=== PATIENT | female | born 1960 | race Two or more races ===

== ENCOUNTER 2024-07-07 11:53 | Inpatient (IN) | payer MEDICAID, OTHER ==
[~2024-07-07] VITALS: Ht 157.5 cm; Wt 69.8 kg
--- NOTE | 2024-07-07 13:36 | ED.PDOC ---
History of Present Illness HPI Luis Carols 64F who is luxembourgish speaking only, presents to the ER w/ 3 surgeries on her ABD and there is a cyst removal, an exploratory and a hernia removal which all happened 2 years ago. There is redness and liquid coming from one of the surgeries that is in the belly button. Pt states that the redness and liquid has been happening for the past 3 days. PMHx of DM. Pt notes that the procedure was done in [place]. Denies chills, fever, N/V/D, SOB, CP or other associated symptoms, modifiers, or recent injuries at this time. Chief Complaint: Wound Check Time Seen by MD: 13:05 Primary Care Provider: BRADEN Reviewed Notes: Nurses Notes, Medications, Allergies Allergies: Coded Allergies: NO KNOWN ALLERGIES (Unverified , 07/07/24) Information Source: Patient Mode of Arrival: Ambulatory Severity: Moderate Timing: Days Duration: Since onset, Days Prehospital treatment: None Past Medical History PAST MEDICAL HISTORY: DM Surgical History: Hernia Repair Surgical History (Other): cyst removal and exploratory TECHNOLOGY ANALYST History: No Pertinent TECHNOLOGY ANALYST History Family History Family History: Reviewed,noncontributory to illness, Unknown Social History Smoker: Non-Smoker Alcohol: Denies ETOH Use Drugs: Denies Drug Use Lives In: Home Constitutional: denies: chills, diaphoresis, fatigue, fever, malaise, sweats, weakness, others EENTM: denies: blurred vision, double vision, ear bleeding, ear discharge, ear drainage, ear pain, ear ringing, eye pain, eye redness, hearing loss, mouth pain, mouth swelling, nasal discharge, nose bleeding, nose congestion, nose pain, photophobia, tearing, throat pain, throat swelling, voice changes, others Respiratory: denies: cough, hemoptysis, orthopnea, SOB at rest, shortness of breath, SOB with excertion, stridor, wheezing, others Cardiovascular: denies: chest pain, dizzy spells, diaphoresis, Dyspnea on exertion, edema, irregular heart beat, left arm pain, lightheadedness, palpitations, PND, syncope, others Gastrointestinal: denies: abdomen distended, abdominal pain, blood streaked bowels, constipated, diarrhea, dysphagia, difficulty swallowing, hematemesis, melena, nausea, poor appetite, poor fluid intake, rectal bleeding, rectal pain, vomiting, others Genitourinary: denies: abnormal vagina bleeding, burning, dyspareunia, dysuria, flank pain, frequency, hematuria, incontinence, pain, , vagina discharge, urgency, others Neurological: denies: dizziness, fainting, headache, left sided numbness, left sided weakness, numbness, paresthesia, pre-existing deficit, right sided numbness, right sided weakness, seizure, speech problems, tingling, tremors, weakness, others Musculoskeletal: denies: back pain, gout, joint pain, joint swelling, muscle pain, muscle stiffness, neck pain, others Integumetry: reports: change in color; denies: bruises, change in hair/nails, dryness, laceration, lesions, lumps, rash, wounds, others Allergic/Immunocompromised: denies: Difficulty Healing, Frequent Infections, Hives, Itching, others Hematologic/Lymphatic: denies: anemia, blood clots, easy bleeding, easy bruising, swollen glands, others Endocrine: denies: excessive hunger, excessive sweating, excessive thirst, excessive urination, flushing, intolerance to cold, intolerance to heat, unexplained weight gain, unexplained weight loss, others Psychiatric: denies: anxiety, bipolar disorder, depression, hopeless, panic disorder, schizophrenia, sleepless, suicidal, others All Other Systems: Reviewed and Negative Physical Exam General Appearance: Moderate Distress, Normal HEENT: Normal ENT Inspection, Pharynx Normal, TMs Normal Neck: Full Range of Motion, Non-Tender, Normal, Normal Inspection Respiratory: Chest Non-Tender, Lungs Clear, No Accessory Muscle Use, No Respiratory Distress, Normal Breath Sounds Cardiovascular: No Edema, No JVD, No Murmur, No Gallop, Normal Peripheral Pulses, Regular Rate/Rhythm Breast Exam: Deferred Gastrointestinal: No Organomegaly, Non Tender, No Pulsatile Mass, Normal Bowel Sounds, Soft Genitalia: Deferred Pelvic: Deferred Rectal: Deferred Extremities: No calf tenderness, Normal capillary refill, Normal inspection, Normal range of motion, Non-tender, No pedal edema Musculoskeletal : Apperance: Normal Neurologic: Alert, leather leveler II-XII nml as Tested, No Motor Deficits, Normal Affect, Normal Mood, No Sensory Deficits Cerebellar Function: Normal Reflexes: Normal Skin: Dry, Normal Color, Warm, Wounds (Umbilical region redness) Peripheral Pulses: 3+ Radial (R), 3+ Radial (L) Lymphatic: No Adenopathy Was a procedure done? Was a procedure done?: No Differential Dx Considerations may include: Cellulitis Electrolyte imbalance X-Ray, Labs, Meds, VS Vital Signs Date Time Temp Pulse Resp B/P (MAP) Pulse Ox O2 Delivery O2 Flow Rate FiO2 07/07/24 16:33 53 16 113/70 (84) 99 07/07/24 14:42 56 17 97 Room Air 07/07/24 14:42 98.9 56 17 105/64 (78) 97 98.9 07/07/24 12:17 98.0 56 17 105/64 (78) 97 Lab Test 07/07/24 15:51 07/07/24 14:54 07/07/24 12:12 Range/Units Urine Color Colorless Yellow Urine Clarity Clear Clear Urine pH 5.0 5.0-9.0 Urine Specific [place] 1.007 1.001-1.035 Urine Protein Negative Negative Urine Ketones Negative Negative Urine Blood Trace H Negative /uL Urine Nitrite Negative Negative Urine Bilirubin Negative Negative Urine Urobilinogen Normal Negative mg/dL Urine Leukocyte Esterase Negative Negative /uL Urine RBC None seen 0 - 4 /hpf Urine WBC None seen 0 - 5 /hpf Urine Squamous Epithelial Cells Few <5 /hpf Urine Bacteria None seen None Seen /hpf Urine Glucose Normal Normal mg/dL White Blood Count 8.1 4.4-10.8 10^3/uL Red Blood Count 4.34 4.0-5.20 10^6/uL Hemoglobin 12.5 12.2-16.2 g/dL Hematocrit 36.1 36.0-46.0 % Mean Corpuscular Volume 83.3 80.0-100.0 fL Mean Corpuscular Hemoglobin 28.8 28.0-32.0 pg Mean Corpuscular Hemoglobin Concent 34.5 32.0-36.0 g/dL Red Cell Distribution Width 14.0 11.8-14.3 % Platelet Count 295 140-450 10^3/uL Mean Platelet Volume 7.7 6.9-10.8 fL Neutrophils (%) (Auto) 64.6 37.0-80.0 % Lymphocytes (%) (Auto) 26.2 10.0-50.0 % Monocytes (%) (Auto) 5.1 0.0-12.0 % Eosinophils (%) (Auto) 3.3 0.0-7.0 % Basophils (%) (Auto) 0.8 0.0-2.0 % Neutrophils # (Auto) 5.3 1.6-8.6 10 ^3/uL Lymphocytes # (Auto) 2.1 0.4-5.4 10 ^3/uL Monocytes # (Auto) 0.4 0-1.3 10 ^3/uL Eosinophils # (Auto) 0.3 0-0.8 10 ^3/uL Basophils # (Auto) 0.1 0-0.2 10 ^3/uL Nucleated Red Blood Cells 0.0 % Sodium Level 138 136-145 mmol/L Potassium Level 3.8 3.5-5.1 mmol/L Chloride Level 106 98-107 mmol/L Carbon Dioxide Level 25 20-31 mmol/L Anion Gap 7 5-15 Blood Urea Nitrogen 13 9-23 mg/dL Creatinine 0.73 0.550-1.02 mg/dL Glomerular Filtration Rate Calc 92 >90 mL/min BUN/Creatinine Ratio 17.8 10.0-20.0 Serum Glucose 105 74-106 mg/dL Calcium Level 10.4 8.7-10.4 mg/dL POC Glucose 93 70-106 mg/dl Patient alert. Does have redness around the umbilicus. Vitals stable. Answering all questions. On examination there is redness around the umbilical region. Had surgery in the past in [place]. Denies fever. WBC within normal limits. Hemoglobin within normal limits. Explained to the patient that she will need intravenous antibiotics. Continue cardiac monitoring. Time of 1ST Reevaluation: 13:35 Reevaluation 1ST: Unchanged Patient Education/Counseling: Diagnosis, Treatment, Prognosis Family Education/Counseling: No Family Present Departure 1 Departure Time of Disposition: 15:42 Impression: Primary Impression: Cellulitis Qualified Codes: L03.90 - Cellulitis, unspecified Disposition: ADMITTED INPATIENT Admit to: Med Surg Condition: Guarded Critical Care Note Critical Care Time?: No Stability Stability form required: No Heart Score Heart Score: Heart Score Response (Comments) Value History N/A 0 EKG N/A 0 Age N/A 0 Risk Factors N/A 0 Troponin N/A 0 Total 0 I personally scribed for DEAN NUNEZ MD ([email or web address]) on 07/07/24 at 13:36. Electronically submitted by Dwain Dobbins ([email or web address]). DEAN NUNEZ MD Jul 07, 2024 13:36
[2024-07-07 15:11] LABS: Basophils # (auto) 0.1 10 ^3/uL (0-0.2); Basophils % (auto) 0.8 % (0.0-2.0); Eosinophils # (auto) 0.3 10 ^3/uL (0-0.8); Eosinophils % (auto) 3.3 % (0.0-7.0); Hematocrit 36.1 % (36.0-46.0); Hemoglobin 12.5 g/dL (12.2-16.2); Lymphocytes # (auto) 2.1 10 ^3/uL (0.4-5.4); Lymphocytes % (auto) 26.2 % (10.0-50.0); Mean Corpuscular Hemoglobin 28.8 pg (28.0-32.0); Mean Corpuscular Hgb Conc. 34.5 g/dL (32.0-36.0); Mean Corpuscular Volume 83.3 fL (80.0-100.0); Monocytes # (auto) 0.4 10 ^3/uL (0-1.3); Monocytes % (auto) 5.1 % (0.0-12.0); Neutrophils # (auto) 5.3 10 ^3/uL (1.6-8.6); Neutrophils % (auto) 64.6 % (37.0-80.0); Platelet Count (auto) 295 10^3/uL (140-450); Red Blood Cells 4.34 10^6/uL (4.0-5.20); White Blood Cell 8.1 10^3/uL (4.4-10.8)
[2024-07-07 15:27] LABS: Chloride 106 mmol/L (98-107); Potassium 3.8 mmol/L (3.5-5.1); Sodium 138 mmol/L (136-145)
[2024-07-07 15:28] LABS: Anion Gap 7 (5-15); Calcium 10.4 mg/dL (8.7-10.4); Carbon Dioxide 25 mmol/L (20-31)
[2024-07-07 15:33] LABS: BUN/Creatinine Ratio 17.8 (10.0-20.0); Blood Urea Nitrogen 13 mg/dL (9-23); Glucose 105 mg/dL (74-106)
[2024-07-07 16:08] LABS: Urine Bacteria None Seen /hpf (None Seen); Urine WBC None Seen /hpf (0 - 5)
[2024-07-07 16:30] LABS: Urine Blood TRACE /uL (Negative); Urine Clarity Clear (Clear); Urine Color Colorless (Yellow); Urine Protein, UAD Negative (Negative); Urine Specific Gravity 1.007 (1.001-1.035); Urine Urobilinogen Normal (Negative)
[2024-07-07] MEDS: CLINDAMYCIN 300MG IV 50 ML IV ONE (17:46)
[2024-07-07] MEDS: cefTRIAXone 1GM/50ML D5W 50 ML IV ONE (17:46)
--- NOTE | 2024-07-07 19:22 | DVH ---
CT SCAN ABDOMEN AND PELVIS WITHOUT CONTRAST CLINICAL HISTORY: cellulitis TECHNIQUE: Helical axial images are obtained from the lung bases through the pelvis without oral cont rast. No intravenous contrast was administered. Coronal and sagittal reformatted images were generate d from thin section reconstructions. One or more of the following radiation dose reduction techniques were used for this examination: automated exposure control, adjustment of the mA and/or kV according to patient size, use of iterative reconstruction technique. COMPARISON: None FINDINGS: LOWER THORAX: Imaged lung bases are grossly clear. ABDOMEN AND PELVIS: Evaluation of visceral and vascular structures is limited due to lack of contrast administration. As visualized, the unenhanced liver, spleen, pancreas and adrenals appear grossly unremarkable. No si zable, radiopaque cholelithiasis. No hydroureteronephrosis. No evidence of abdominal aortic aneurysm. No evidence of bowel obstruction. No free intraperitoneal air or fluid identified. No sizable bladder calculus. Fluid noted tracking along a midline lower anterior abdominal wall scar/incision which is approximate ly 7-8 cm in length. Largest part of this collection measures approximately 2.2 x 2.3 cm in AP dimens ions. Overlying skin thickening is noted. No destructive osseous lesions identified. Degenerative changes at L5-S1. IMPRESSION: Suspected incisional abscess as above.
[2024-07-07 21:19] VITALS: PULSE 61; RESP 16; O2SAT 99
[2024-07-07] MEDS ORDERED: NITROGLYCERIN 0.4 MG SL TAB SL PRN (21:45)
[2024-07-07] MEDS ORDERED: MORPHINE SULFATE INJ 2 MG/ml SYRG IV PRN (21:45)
[2024-07-07] MEDS ORDERED: ONDANSETRON HCL 4 MG/2 ML VIAL IV PRN (21:45)
[2024-07-07] MEDS: SODIUM CHLOR 0.9% PF (SALINE LOCK) 10ML VIAL/SYR IV SCH (22:04)
[2024-07-07 23:02] LABS: Albumin 4.9 g/dL (3.2-4.8); Bilirubin, Total 0.4 mg/dL (0.2-1.0); Total Protein 8.3 g/dL (5.7-8.2)
--- NOTE | 2024-07-07 23:07 | DVHHPRES ---
History of Present Illness Resident Creating Document: ZAMZAM DIXON RESIDENT History of Present Illness Oanh Tirado is a 64 years old Haitian-speaking female with PMH of type 2 DM and HLD presented to the ED for the wound check. Patient reported she has been having wound in lower abdomen in midline for 2 years, the wound was formed after I and D in [place] 2 years back for an abscess, since then it has been always leaking symptoms weight sometimes serous sometimes mixed with blood but no pain but for past 3 days she has been experiencing pain but denies fever, nausea, vomiting, and other associated symptoms. Past Medical History Type 2 DM, HLD Past Surgical History Appendectomy, hernia repair Family History Reviewed, noncontributory Past Social History Lives with daughter. Denies smoking, alcohol and other drug abuse Review of Systems Constitutional: No: Fever, Chills, Sweats, Weakness, Malaise, Other Eyes: No: Pain, Vision change, Conjunctivae inflammation, Eyelid inflammation, Other, Redness Cardiovascular: No: Chest Pain, Palpitations, Orthopnea, Paroxysmal Noc. Dyspnea, Edema, Lt Headedness, Other Gastrointestinal: No: Nausea, Vomiting, Abdominal Pain, Diarrhea, Constipation, Melena, Hematochezia, Other Genitourinary: No Dysuria, No Frequency, No Incontinence, No Hematuria, No Retention, No Other Musculoskeletal: No: other, neck pain, shoulder pain, arm pain, back pain, hand pain, leg pain, foot pain Skin: Other (Midline lower abdominal wound) Allergies: Coded Allergies: NO KNOWN ALLERGIES (Unverified , 07/07/24) Medications Current Medications Medications Dose Ordered Sig/[facility] Route Start Time Stop Time Status Last Admin Dose Admin Sodium Chloride 10 ml Q8HR IV 07/07/24 22:00 07/07/24 22:04 10 ML Ondansetron HCl 4 mg Q4HP PRN IV 07/07/24 21:45 Acetaminophen 650 mg Q6HP PRN PO 07/07/24 21:45 Morphine Sulfate 2 mg Q4HPRN PRN IV 07/07/24 21:45 Nitroglycerin 0.4 mg Q5MINP PRN SL 07/07/24 21:45 Morphine Sulfate 2 mg Q30M PRN IV 07/07/24 21:45 Clindamycin Phosphate 50 ml @ 50 mls/hr DAILY IV 07/08/24 10:00 Ceftriaxone Sodium 50 ml @ 100 mls/hr DAILY IV 07/08/24 10:00 Pantoprazole Sodium 40 mg DAILY IV 07/08/24 10:00 Exam Vital Signs Vital Signs Date Time Temp Pulse Resp B/P (MAP) Pulse Ox O2 Delivery O2 Flow Rate FiO2 07/07/24 21:19 61 16 99 Room Air* 0 21 07/07/24 20:13 98.0 106/68 (81) 98.0 Exam Pt is lying on bed General Appearance: Alert, Oriented X3, Cooperative, Not in acute distress HEENT: Atraumatic, Mucous membranes moist/pink Respiratory: Clear to auscultation, Normal air movement, No added sounds Cardiovascular: Regular rate, Normal S1, Normal S2, No murmurs Abdominal: Active bowel sounds, Soft, no distention, no tenderness Extremities: No edema, Normal pulses, No tenderness/swelling Skin: Midline lower abdominal wound with induration, redness, tender, draining serous fluid Neuro: Normal speech, sensorimotor deficits none Psych/Mental Status: Mental status NL, Mood NL Nurse was there as sharperone during examination Labs/Xrays Labs Test 07/07/24 15:51 07/07/24 14:54 07/07/24 12:12 Range/Units Urine Color Colorless Yellow Urine Clarity Clear Clear Urine pH 5.0 5.0-9.0 Urine Specific [place] 1.007 1.001-1.035 Urine Protein Negative Negative Urine Ketones Negative Negative Urine Blood Trace H Negative /uL Urine Nitrite Negative Negative Urine Bilirubin Negative Negative Urine Urobilinogen Normal Negative mg/dL Urine Leukocyte Esterase Negative Negative /uL Urine RBC None seen 0 - 4 /hpf Urine WBC None seen 0 - 5 /hpf Urine Squamous Epithelial Cells Few <5 /hpf Urine Bacteria None seen None Seen /hpf Urine Glucose Normal Normal mg/dL White Blood Count 8.1 4.4-10.8 10^3/uL Red Blood Count 4.34 4.0-5.20 10^6/uL Hemoglobin 12.5 12.2-16.2 g/dL Hematocrit 36.1 36.0-46.0 % Mean Corpuscular Volume 83.3 80.0-100.0 fL Mean Corpuscular Hemoglobin 28.8 28.0-32.0 pg Mean Corpuscular Hemoglobin Concent 34.5 32.0-36.0 g/dL Red Cell Distribution Width 14.0 11.8-14.3 % Platelet Count 295 140-450 10^3/uL Mean Platelet Volume 7.7 6.9-10.8 fL Neutrophils (%) (Auto) 64.6 37.0-80.0 % Lymphocytes (%) (Auto) 26.2 10.0-50.0 % Monocytes (%) (Auto) 5.1 0.0-12.0 % Eosinophils (%) (Auto) 3.3 0.0-7.0 % Basophils (%) (Auto) 0.8 0.0-2.0 % Neutrophils # (Auto) 5.3 1.6-8.6 10 ^3/uL Lymphocytes # (Auto) 2.1 0.4-5.4 10 ^3/uL Monocytes # (Auto) 0.4 0-1.3 10 ^3/uL Eosinophils # (Auto) 0.3 0-0.8 10 ^3/uL Basophils # (Auto) 0.1 0-0.2 10 ^3/uL Nucleated Red Blood Cells 0.0 % Sodium Level 138 136-145 mmol/L Potassium Level 3.8 3.5-5.1 mmol/L Chloride Level 106 98-107 mmol/L Carbon Dioxide Level 25 20-31 mmol/L Anion Gap 7 5-15 Blood Urea Nitrogen 13 9-23 mg/dL Creatinine 0.73 0.550-1.02 mg/dL Glomerular Filtration Rate Calc 92 >90 mL/min BUN/Creatinine Ratio 17.8 10.0-20.0 Serum Glucose 105 74-106 mg/dL Calcium Level 10.4 8.7-10.4 mg/dL POC Glucose 93 70-106 mg/dl Assessment/Plan Assessment/Plan # abdominal wall cellulitis vs abscess -currently on clindamycin and Rocephin -ordered wound consult -ordered wound culture -consider surgical evaluation if needed -monitor lab -CT abdominal pelvis showed suspected incisional abscess -abdominal ultrasound showed likely phlegmonous abscess No VTE PPX since patient is ambulatory No GI be PPX Regular diet Resume home meds Goals of care discussed with the patient and family for more than 27 minutes: Full code status Case management discussed with Dr. Bridges, nurse and patient Plan discussed with: Patient My Orders Orders - ZAMZAM DIXON RESIDENT Procedure Category Date Status Time Admit ADMIT 07/07/24 Transmitted 21:43 Allergies ALBINO 07/07/24 In Process 21:43 Code Status CODE 07/07/24 Transmitted 21:43 Sodium Chloride Lock PHA 07/07/24 In Process (Saline Lock Ns) 22:00 Ondansetron Hcl PHA 07/07/24 In Process (Zofran) 21:45 Complete Blood Count LAB 07/08/24 Verified 04:00 Comprehensive LAB 07/08/24 Verified Metabolic Panel 04:00 Cardiac DIET 07/08/24 Transmitted Diet-2gna,Lofat,Lochol Breakfast Acetaminophen Tablet PHA 07/07/24 In Process (Tylenol Tablet) 21:45 Morphine Sulfate PHA 07/07/24 In Process Injection 21:45 Nitroglycerin PHA 07/07/24 In Process Sublingual (Ntrostat 21:45 Morphine Sulfate PHA 07/07/24 In Process Injection 21:45 Oxygen By Nasal RT 07/07/24 Transmitted Cannula 21:43 Stat Ekg For Chest ALBINO 07/07/24 In Process Pain 21:43 Notify Of Changes ALBINO 07/07/24 In Process From Base 21:43 Housekeeping Supervisor For ALBINO 07/07/24 In Process 24 Hours 21:43 Emergency Dysrhythmia ALBINO 07/07/24 In Process Protocol 21:43 Rhythm Strips Once ALBINO 07/07/24 In Process Every Shift 21:43 * Wound Consult CONS 07/07/24 Transmitted Clindamycin 300mg Iv PHA 07/08/24 In Process (Cleocin Iv) 10:00 Ceftriaxone 1gm/50ml PHA 07/08/24 In Process D5w (Rocephin) 10:00 Pantoprazole PHA 07/08/24 In Process (Protonix) 10:00 Wound Culture W/ Gs DONNA 07/07/24 Logged 23:01 Hemoglobin A1c LAB 07/07/24 Transmitted 23:02 Drug Screen LAB 07/07/24 Transmitted 23:02 Vitamin D, 25-Hydroxy LAB 07/07/24 Transmitted 23:02 Vitamin B12 LAB 07/07/24 Transmitted 23:02 Urinalysis LAB 07/07/24 Transmitted 23:02 Thyroid Stimulating LAB 07/07/24 Transmitted Hormone 23:02 ZACKSASKIAJONATHAN RESIDENT Jul 07, 2024 23:07
[2024-07-07 23:30] LABS: Amphetamine Screen, Urine Neg (NEGATIVE); Barbiturate Scree,Urine Neg (NEGATIVE); Benzodiazephine Screen, Urine Neg (NEGATIVE)
[2024-07-07 23:31] LABS: Cannabinoid Screen, Urine Neg (NEGATIVE); Cocaine Screen, Urine Neg (NEGATIVE); Opiate Scree,Urine Neg (NEGATIVE); Phencyclidine Screen, Urine Neg (NEGATIVE)
[2024-07-08] VITALS (12 sets, daily range): BP systolic 94–117; BP diastolic 47–90; PULSE 48–78; RESP 16–20; TEMP 97.3–98.1; O2SAT 95–100
--- NOTE | 2024-07-08 04:02 | DVH ---
Exam: US ABDOMEN LIMITED Date: 07/08/2024 12:55 AM Clinical History: Abscess Comparison: None Technique: Targeted sonographic evaluation of the soft tissues of the abdominal wall was obtained utilizing gra yscale and color Doppler imaging. Findings: There is a 3 x 1 x 2 cm phlegmonous collection in the mid abdominal wall. Developing abscess not excl uded. IMPRESSION: There is a 3 x 1 x 2 cm phlegmonous collection in the mid abdominal wall. Developing abscess not excl uded.
[2024-07-08 04:47] LABS: Basophils # (auto) 0 10 ^3/uL (0-0.2); Basophils % (auto) 0.6 % (0.0-2.0); Eosinophils # (auto) 0.3 10 ^3/uL (0-0.8); Eosinophils % (auto) 3.8 % (0.0-7.0); Hematocrit 33.1 % (36.0-46.0); Hemoglobin 11.1 g/dL (12.2-16.2); Lymphocytes # (auto) 2.5 10 ^3/uL (0.4-5.4); Lymphocytes % (auto) 32.5 % (10.0-50.0); Mean Corpuscular Hgb Conc. 33.5 g/dL (32.0-36.0); Mean Corpuscular Volume 83.4 fL (80.0-100.0); Monocytes # (auto) 0.5 10 ^3/uL (0-1.3); Monocytes % (auto) 6.6 % (0.0-12.0); Neutrophils # (auto) 4.3 10 ^3/uL (1.6-8.6); Neutrophils % (auto) 56.5 % (37.0-80.0); Platelet Count (auto) 262 10^3/uL (140-450); Red Blood Cells 3.96 10^6/uL (4.0-5.20); Red Cell Distribution Width 13.9 % (11.8-14.3); White Blood Cell 7.6 10^3/uL (4.4-10.8)
[2024-07-08 05:05] LABS: Alanine Aminotransferase 12 U/L (7-40); Albumin 4.5 g/dL (3.2-4.8); Alkaline Phosphatase 49 U/L (46-116); Anion Gap 5 (5-15); Aspartate Aminotransferase < 8 U/L (13-40); BUN/Creatinine Ratio 18.1 (10.0-20.0); Bilirubin, Total 0.4 mg/dL (0.2-1.0); Blood Urea Nitrogen 15 mg/dL (9-23); Calcium 9.6 mg/dL (8.7-10.4); Carbon Dioxide 27 mmol/L (20-31); Chloride 108 mmol/L (98-107); Glucose 99 mg/dL (74-106); Potassium 3.9 mmol/L (3.5-5.1); Sodium 140 mmol/L (136-145); Total Protein 7.1 g/dL (5.7-8.2)
[2024-07-08] MEDS: CLINDAMYCIN 300MG IV 50 ML IV SCH ×2 (09:15→14:49)
[2024-07-08] MEDS: PANTOPRAZOLE 40 MG/10 ML VIAL INJ IV SCH (09:15)
--- NOTE | 2024-07-08 09:48 | DVH ---
ULTRASOUND ABDOMEN LIMITED INDICATION: Abdominal pain.. TECHNIQUE: Multiple real-time sonographic images of the abdomen were obtained. COMPARISON: US ABDOMEN LIMITED on DOS: 07/08/24 FINDINGS: The visualized liver parenchyma appears echogenic consistent with steatosis. . The liver measures 13.3 cm. No discrete hepatic lesion or intrahepatic biliary ductal dilatation is identified. There are small mobile gallstones and sludge seen within the gallbladder. There is no gallbladder wal l thickening or pericholecystic fluid. The common biliary duct is not dilated. The right kidney measures 11.2 cm length. No sonographic evidence of nephrolithiasis or hydronephro sis. Pancreas is obscured by bowel gas. IMPRESSION: 1. Hepatic steatosis. 2. Small mobile gallstones and sludge in the gallbladder. HS:Y
[2024-07-08] MEDS ORDERED: cefTRIAXone 1GM/50ML D5W 50 ML IV SCH (10:00)
[2024-07-08] MEDS: MORPHINE SULFATE INJ 2 MG/ml SYRG IV PRN (15:02)
[2024-07-08] MEDS ORDERED: BACDST PO (15:46)
[2024-07-08] MEDS: SODIUM CHLORIDE 0.9% 500 ML IV ONE (17:31)
--- NOTE | 2024-07-08 20:11 | DVHPNRES ---
Progress Note Date Seen: Jul 08, 2024 Resident Creating Document: CONSTANZA DEGROOT MIRIAM Has the PT tested + for MRSA If YES, has PT been informed?: No Medical Necessity Reason Pt with a Central, PICC or Fol: No Subjective Review of Systems Oanh Tirado is a 64-year-old Telugu-speaking female with a PMH of type 2 DM and HLD who presented to the ED for a wound check. The patient reported having a wound in the lower abdomen midline for 2 years, formed after an I&D in [place] for an abscess. Since then, it has been leaking serous or serosanguineous fluid but was painless until 3 days ago when she started experiencing pain. She denies fever, nausea, vomiting, and other associated symptoms. Past Medical History: Type 2 DM, HLD Past Surgical History: Appendectomy, hernia repair Family History: Reviewed, noncontributory Social History: Lives with daughter, denies smoking, alcohol, and other drug abuse Home Medication: Metformin, atorvastatin On physical examination, there was periumbilical redness with a small ulcer draining serosanguineous fluid; otherwise, the physical examination was within normal limits. Lab studies showed Hb at 11.1, chloride 108, Hb A1c 6.1, otherwise within normal limits. Abdominal CT scan showed a suspected incisional abscess, and ultrasound revealed a 3 x 1 x 2 cm phlegmonous collection in the mid-abdominal wall, with a developing abscess not excluded, hepatic steatosis, and small mobile gallstones and sludge in the gallbladder. The patient was admitted for evaluation of a possible abdominal abscess. Patient reports: No new complaints, Feels better Changes from previous H/P or p: No Changes Objective vital signs Vital Sign Date Time Temp Pulse Resp B/P (MAP) Pulse Ox O2 Delivery O2 Flow Rate FiO2 07/08/24 18:48 75 18 98 Room Air* 0 21 07/08/24 18:47 97.3 117/69 (85) 97.3 Total Intake and Output 07/07/24 07/07/24 07/08/24 15:00 23:00 07:00 Intake Total 100 ml Balance 100 ml medications Current Medications Medications Dose Ordered Sig/[facility] Route Start Time Stop Time Status Last Admin Dose Admin Sodium Chloride 10 ml Q8HR IV 07/07/24 22:00 07/08/24 14:00 10 ML Ondansetron HCl 4 mg Q4HP PRN IV 07/07/24 21:45 Acetaminophen 650 mg Q6HP PRN PO 07/07/24 21:45 Morphine Sulfate 2 mg Q4HPRN PRN IV 07/07/24 21:45 07/08/24 15:02 2 MG Nitroglycerin 0.4 mg Q5MINP PRN SL 07/07/24 21:45 Morphine Sulfate 2 mg Q30M PRN IV 07/07/24 21:45 Pantoprazole Sodium 40 mg DAILY IV 07/08/24 10:00 07/08/24 09:15 40 MG Clindamycin Phosphate 50 ml @ 50 mls/hr Q8HR IV 07/08/24 14:00 07/08/24 14:49 50 MLS/HR Examination General Appearance: Alert, Oriented X3, Cooperative, No acute distress HEENT: Atraumatic, PERRLA, EOMI, Mucous membrane moist/pink Respiratory: Clear to auscultation, Normal air movement Cardiovascular: Regular rate, Normal S1, Normal S2, No murmurs, no chest wall tenderness Abdominal: periumbilical redness with a small ulcer draining serosanguineous fluid Extremities: No clubbing, No cyanosis, No edema, Normal pulses, No tenderness/swelling Skin: No rashes, No breakdown, No significant lesion laboratory and microbiology Laboratory Tests 07/08/24 04:17 Test 07/08/24 04:17 Range/Units Serum Glucose 99 74-106 mg/dL Labs and/or images reviewed: Labs reviewed by me, Image(s) reviewed by me Problem List/Assessment/Plan Problem List/Assessment/Plan ?Abdominal wall abscess Abdominal CT scan showed fluid noted tracking along a midline lower anterior abdominal wall scar/incision which is approximately 7-8 cm in length. Largest part of this collection measures approximately 2.2 x 2.3 cm in AP dimensions ultrasound revealed a 3 x 1 x 2 cm phlegmonous collection in the mid-abdominal wall IV clindamycin Surgery is on the board Hepatic steatosis, likely due to JORGE Monitoring Gallstone Ultrasound shows small mobile gallstones and sludge in the gallbladder Follow up on outpatient basis Diabetes mellitus Hb A1c is at 6.1 Serum glucose is at 105 Monitoring glucose level Hyperlipidemia Continue atorvastatin DVT prophylaxis Lovenox Bradycardia EKG shows sinus bradycardia Monitoring Peptic ulcer prevention Protonix Code status Full Code Case discussed with Dr. Bridges Plan discussed with: Patient, Other (RN) My Orders My Orders Orders - CONSTANZA DEGROOT RESDIBRIGETTE Procedure Category Date Status Time Clindamycin 300mg Iv PHA 07/08/24 In Process (Cleocin Iv) 14:00 LIVER US 07/08/24 Resulted 09:10 * Surgical Consult CONS 07/08/24 Transmitted Wound Culture W/ Gs DONNA 07/08/24 In Process 16:21 * Dietary Consult CONS 07/08/24 Transmitted 18:34 CONSTANZA DEGROOT RESDIBRIGETTE Jul 08, 2024 20:11
[2024-07-09] VITALS (8 sets, daily range): BP systolic 95–146; BP diastolic 47–66; PULSE 51–79; RESP 17–20; TEMP 97–98.2; O2SAT 95–100
[2024-07-09 04:43] LABS: Basophils # (auto) 0.1 10 ^3/uL (0-0.2); Basophils % (auto) 0.7 % (0.0-2.0); Eosinophils # (auto) 0.3 10 ^3/uL (0-0.8); Eosinophils % (auto) 3.5 % (0.0-7.0); Hematocrit 32.4 % (36.0-46.0); Lymphocytes # (auto) 2.6 10 ^3/uL (0.4-5.4); Lymphocytes % (auto) 34.2 % (10.0-50.0); Mean Corpuscular Hemoglobin 28.1 pg (28.0-32.0); Mean Corpuscular Hgb Conc. 33.9 g/dL (32.0-36.0); Mean Corpuscular Volume 82.7 fL (80.0-100.0); Monocytes # (auto) 0.5 10 ^3/uL (0-1.3); Monocytes % (auto) 6.7 % (0.0-12.0); Neutrophils # (auto) 4.2 10 ^3/uL (1.6-8.6); Neutrophils % (auto) 54.9 % (37.0-80.0); Platelet Count (auto) 262 10^3/uL (140-450); Red Blood Cells 3.92 10^6/uL (4.0-5.20); Red Cell Distribution Width 13.8 % (11.8-14.3); White Blood Cell 7.7 10^3/uL (4.4-10.8)
[2024-07-09] MEDS: ACETAMINOPHEN 325 MG TAB PO PRN (05:35)
[2024-07-09] MEDS: SODIUM CHLORIDE 0.9% 500 ML IV ONE (08:45)
--- NOTE | 2024-07-09 16:41 | DVHPNRES ---
Progress Note Date Seen: Jul 09, 2024 Resident Creating Document: CONSTANZA DEGROOT MIRIAM Has the PT tested + for MRSA If YES, has PT been informed?: No Medical Necessity Reason Pt with a Central, PICC or Fol: No Subjective Review of Systems Patient seen and examined at the bedside. Patient is feeling better but still complained of mild abdominal pain. Patient reports: No new complaints Changes from previous H/P or p: No Changes Objective vital signs Vital Sign Date Time Temp Pulse Resp B/P (MAP) Pulse Ox O2 Delivery O2 Flow Rate FiO2 07/09/24 12:47 97.5 52 17 95/47 (63) 97 97.5 07/09/24 08:03 Room Air* 0 21 Total Intake and Output 07/08/24 07/08/24 07/09/24 15:00 23:00 07:00 Intake Total 700 ml 240 ml Balance 700 ml 240 ml medications Current Medications Medications Dose Ordered Sig/Nyasia Route Start Time Stop Time Status Last Admin Dose Admin Sodium Chloride 10 ml Q8HR IV 07/07/24 22:00 07/09/24 05:29 10 ML Ondansetron HCl 4 mg Q4HP PRN IV 07/07/24 21:45 Acetaminophen 650 mg Q6HP PRN PO 07/07/24 21:45 07/09/24 10:57 650 MG Morphine Sulfate 2 mg Q4HPRN PRN IV 07/07/24 21:45 07/08/24 15:02 2 MG Nitroglycerin 0.4 mg Q5MINP PRN SL 07/07/24 21:45 Morphine Sulfate 2 mg Q30M PRN IV 07/07/24 21:45 Pantoprazole Sodium 40 mg DAILY IV 07/08/24 10:00 07/09/24 10:56 40 MG Clindamycin Phosphate 50 ml @ 50 mls/hr Q8HR IV 07/08/24 14:00 07/09/24 13:10 50 MLS/HR Examination General Appearance: Alert, Oriented X3, Cooperative, No acute distress HEENT: Atraumatic, PERRLA, EOMI, Mucous membrane moist/pink Respiratory: Clear to auscultation, Normal air movement Cardiovascular: Regular rate, Normal S1, Normal S2, No murmurs, no chest wall tenderness Abdominal: periumbilical redness with a small ulcer draining serosanguineous fluid Extremities: No clubbing, No cyanosis, No edema, Normal pulses, No tenderness/swelling Skin: No rashes, No breakdown, No significant lesion laboratory and microbiology Laboratory Tests 07/09/24 04:27 07/08/24 04:17 Test 07/08/24 04:17 Range/Units Serum Glucose 99 74-106 mg/dL Microbiology Date/Time Source Procedure Growth Status 07/08/24 18:31 Abdomen Gram Stain - Final Resulted 07/08/24 18:31 Abdomen Wound Culture - Preliminary Resulted Labs and/or images reviewed: Labs reviewed by me, Image(s) reviewed by me Problem List/Assessment/Plan Problem List/Assessment/Plan ?Abdominal wall abscess Abdominal CT scan showed fluid noted tracking along a midline lower anterior abdominal wall scar/incision which is approximately 7-8 cm in length. Largest part of this collection measures approximately 2.2 x 2.3 cm in AP dimensions ultrasound revealed a 3 x 1 x 2 cm phlegmonous collection in the mid-abdominal wall IV clindamycin Surgery is on the board, planning for the surgery for tomorrow Wound culture preliminary result shows few growth of Staphylococcus aureus Hepatic steatosis, likely due to JORGE Monitoring Gallstone Ultrasound shows small mobile gallstones and sludge in the gallbladder Follow up on outpatient basis Diabetes mellitus Hb A1c is at 6.1 Serum glucose is at 105 Monitoring glucose level Hyperlipidemia Continue atorvastatin DVT prophylaxis Lovenox Bradycardia EKG shows sinus bradycardia Monitoring Peptic ulcer prevention Protonix Code status Full Code Case discussed with Dr. Bridges Plan discussed with: Patient, Other (RN) My Orders My Orders Orders - CONSTANZA DEGROOT Procedure Category Date Status Time * Dietary Consult CONS 07/08/24 Transmitted 18:34 * Surgical Consult CONS 07/09/24 Transmitted 04:54 Date of Service: Jul 09, 2024 Billing Provider: AUDRA WATTS MD Common Visit Codes: [id number] INP/OBS CARE(HIGH) CONSTANZA DEGROOT RESDIENT Jul 09, 2024 16:41 AUDRA WATTS MD Jul 10, 2024 09:55
[2024-07-10] VITALS (9 sets, daily range): BP systolic 98–114; BP diastolic 51–72; PULSE 43–67; RESP 16–20; TEMP 97.5–98.9; O2SAT 95–99
[2024-07-10 07:38] LABS: Basophils # (auto) 0 10 ^3/uL (0-0.2); Basophils % (auto) 0.4 % (0.0-2.0); Eosinophils # (auto) 0.3 10 ^3/uL (0-0.8); Eosinophils % (auto) 3.7 % (0.0-7.0); Hematocrit 34.6 % (36.0-46.0); Hemoglobin 11.6 g/dL (12.2-16.2); Lymphocytes # (auto) 2.5 10 ^3/uL (0.4-5.4); Mean Corpuscular Hgb Conc. 33.6 g/dL (32.0-36.0); Mean Corpuscular Volume 83.4 fL (80.0-100.0); Monocytes # (auto) 0.5 10 ^3/uL (0-1.3); Monocytes % (auto) 6.5 % (0.0-12.0); Neutrophils # (auto) 4.3 10 ^3/uL (1.6-8.6); Neutrophils % (auto) 56.4 % (37.0-80.0); Nucleated Red Blood Cells % 0.1 %; Platelet Count (auto) 260 10^3/uL (140-450); Red Blood Cells 4.15 10^6/uL (4.0-5.20); Red Cell Distribution Width 13.7 % (11.8-14.3); White Blood Cell 7.6 10^3/uL (4.4-10.8)
[2024-07-10 08:01] LABS: INR 1.03 (0.9-1.15); Partial Thromboplastin Time 25.6 SEC (24.5-34.5); Prothrombin Time 10.9 sec (9.3-11.8)
--- NOTE | 2024-07-10 09:44 | DVH ---
EXAM: XY CHEST TWO VIEWS ROUTINE CLINICAL HISTORY: pain COMPARISON: None TECHNIQUE: Frontal and lateral view of the chest was obtained FINDINGS: Lines and Tubes: None Lungs: No focal consolidation. Pleura: No effusion. No pneumothorax. Cardiomediastinal contours: Unremarkable Bones: No acute osseous abnormality. IMPRESSION: No acute cardiopulmonary disease.
--- NOTE | 2024-07-10 18:57 | DVHPNRES ---
Progress Note Date Seen: Jul 10, 2024 Resident Creating Document: CONSTANZA DEGROOT RESDIENT Has the PT tested + for MRSA If YES, has PT been informed?: No Medical Necessity Reason Pt with a Central, PICC or Fol: No Subjective Review of Systems Patient seen and examined at the bedside. Patient is feeling better but still complained of mild abdominal pain. Patient reports: No new complaints Objective vital signs Vital Sign Date Time Temp Pulse Resp B/P (MAP) Pulse Ox O2 Delivery O2 Flow Rate FiO2 07/10/24 17:12 98.9 64 20 98/69 (79) 95 98.9 07/10/24 08:00 Room Air* 0 21 Total Intake and Output 07/09/24 07/09/24 07/10/24 15:00 23:00 07:00 Intake Total 200 ml 672 ml 940 ml Output Total 750 ml Balance 200 ml 672 ml 190 ml medications Current Medications Medications Dose Ordered Sig/Nyasia Route Start Time Stop Time Status Last Admin Dose Admin Sodium Chloride 10 ml Q8HR IV 07/07/24 22:00 07/10/24 15:43 10 ML Ondansetron HCl 4 mg Q4HP PRN IV 07/07/24 21:45 Acetaminophen 650 mg Q6HP PRN PO 07/07/24 21:45 07/09/24 10:57 650 MG Morphine Sulfate 2 mg Q4HPRN PRN IV 07/07/24 21:45 07/08/24 15:02 2 MG Nitroglycerin 0.4 mg Q5MINP PRN SL 07/07/24 21:45 Morphine Sulfate 2 mg Q30M PRN IV 07/07/24 21:45 Pantoprazole Sodium 40 mg DAILY IV 07/08/24 10:00 07/10/24 08:37 40 MG Clindamycin Phosphate 50 ml @ 50 mls/hr Q8HR IV 07/08/24 14:00 07/10/24 15:42 50 MLS/HR Examination General Appearance: Alert, Oriented X3, Cooperative, No acute distress HEENT: Atraumatic, PERRLA, EOMI, Mucous membrane moist/pink Respiratory: Clear to auscultation, Normal air movement Cardiovascular: Regular rate, Normal S1, Normal S2, No murmurs, no chest wall tenderness Abdominal: periumbilical redness with a small ulcer draining serosanguineous fluid Extremities: No clubbing, No cyanosis, No edema, Normal pulses, No tenderness/swelling Skin: No rashes, No breakdown, No significant lesion laboratory and microbiology Laboratory Tests 07/10/24 06:06 07/08/24 04:17 Test 07/08/24 04:17 Range/Units Serum Glucose 99 74-106 mg/dL Microbiology Date/Time Source Procedure Growth Status 07/08/24 18:31 Abdomen Gram Stain - Final Complete 07/08/24 18:31 Wound Culture - Final Methicillin Resistant S.aureus Complete Labs and/or images reviewed: Labs reviewed by me, Image(s) reviewed by me Problem List/Assessment/Plan Problem List/Assessment/Plan ?Abdominal wall abscess Abdominal CT scan showed fluid noted tracking along a midline lower anterior abdominal wall scar/incision which is approximately 7-8 cm in length. Largest part of this collection measures approximately 2.2 x 2.3 cm in AP dimensions ultrasound revealed a 3 x 1 x 2 cm phlegmonous collection in the mid-abdominal wall IV clindamycin Surgery is on the board, planning for the surgery for morning Wound culture shows MRSA positive, sensitive to clindamycin Hepatic steatosis, likely due to JORGE Monitoring Gallstone Ultrasound shows small mobile gallstones and sludge in the gallbladder Follow up on outpatient basis Diabetes mellitus Hb A1c is at 6.1 Serum glucose is at 105 Monitoring glucose level Hyperlipidemia Continue atorvastatin DVT prophylaxis Lovenox Bradycardia EKG shows sinus bradycardia Echocardiogram Telemetry monitoring Physical therapy Orthostatic vitals Peptic ulcer prevention Protonix Code status Full Code Case discussed with Dr. Bridges Plan discussed with: Patient, Other (RN) My Orders My Orders Orders - CONSTANZA DEGROOT RESDIENT Procedure Category Date Status Time Chest Two Views XY 07/10/24 Resulted Routine 01:35 Electrocardigram EKG 07/10/24 Logged 01:35 Electrocardigram EKG 07/10/24 Logged 06:15 Pt Request For Service PT 07/10/24 Logged 13:53 Bioinformaticist ORDERS 07/10/24 Transmitted 13:53 Transfer Orders XFER 07/10/24 Transmitted 13:53 Orthostatic Vital ORDERS 07/10/24 Transmitted Signs 13:53 Dietary Evaluation Review Comments: 1) Consider GEOVANNI 1 pkt BID for wound 2) Continue current plan of care Expected Outcomes/Goals: F/U in 3-5 days Date of Service: Jul 10, 2024 Billing Provider: AUDRA WATTS MD Common Visit Codes: [id number] INP/OBS CARE(HIGH) CONSTANZA DEGROOT Jul 10, 2024 18:57 AUDRA WATTS MD Jul 11, 2024 19:03
[2024-07-11] VITALS (9 sets, daily range): BP systolic 93–128; BP diastolic 55–77; PULSE 52–65; RESP 16–18; TEMP 36.5; O2SAT 94–100
[2024-07-11 06:40] LABS: Basophils # (auto) 0 10 ^3/uL (0-0.2); Basophils % (auto) 0.4 % (0.0-2.0); Eosinophils # (auto) 0.3 10 ^3/uL (0-0.8); Eosinophils % (auto) 3.5 % (0.0-7.0); Hematocrit 33.7 % (36.0-46.0); Hemoglobin 11.1 g/dL (12.2-16.2); Lymphocytes # (auto) 2.3 10 ^3/uL (0.4-5.4); Lymphocytes % (auto) 30.9 % (10.0-50.0); Mean Corpuscular Hemoglobin 27.6 pg (28.0-32.0); Mean Corpuscular Volume 83.7 fL (80.0-100.0); Monocytes # (auto) 0.5 10 ^3/uL (0-1.3); Monocytes % (auto) 6.2 % (0.0-12.0); Neutrophils # (auto) 4.4 10 ^3/uL (1.6-8.6); Platelet Count (auto) 267 10^3/uL (140-450); Red Blood Cells 4.03 10^6/uL (4.0-5.20); Red Cell Distribution Width 13.6 % (11.8-14.3); White Blood Cell 7.5 10^3/uL (4.4-10.8)
[2024-07-11] MEDS ORDERED: ceFAZolin 2 GM/D5W100ml 100 ML IV ONE (06:41)
[2024-07-11 06:43] LABS: Anion Gap 9 (5-15); Carbon Dioxide 24 mmol/L (20-31); Chloride 108 mmol/L (98-107); Sodium 141 mmol/L (136-145)
[2024-07-11 06:44] LABS: Calcium 9.4 mg/dL (8.7-10.4)
[2024-07-11 06:49] LABS: BUN/Creatinine Ratio 20.2 (10.0-20.0); Blood Urea Nitrogen 17 mg/dL (9-23); Glucose 98 mg/dL (74-106)
[2024-07-11] MEDS ORDERED: BUPIVACAINE 0.25% INJ 50ML VIAL ONE (06:56)
[2024-07-11] MEDS ORDERED: LIDOCAINE W/ EPINEPHRINE 1% 20ML VIAL ONE (06:56)
[2024-07-11] MEDS ORDERED: MIDAZOLAM HCL 2MG/2ML 2ml VIAL (1mg/ml) ONE (07:08)
[2024-07-11] MEDS ORDERED: KETAMINE 50mg/ML 1ml syringe ONE (07:08)
[2024-07-11] MEDS ORDERED: ONDANSETRON HCL 4 MG/2 ML VIAL ONE (07:09)
[2024-07-11] MEDS ORDERED: GLYCOPYRROLATE 0.2 MG/ML 1ML VIAL ONE (07:09)
[2024-07-11] MEDS ORDERED: PROPOFOL 10 MG/ML 20 ML IV ONE (07:09)
[2024-07-11] MEDS ORDERED: HYDROmorphone HCL 2 MG/ML VL/or syr IV PRN (08:00)
[2024-07-11] MEDS: LIDOCAINE 1%HCL (LOCAL ANESTH) 10 ML MDV IJ ONE (08:11)
--- NOTE | 2024-07-11 08:41 | DVHOP ---
DATE OF SURGERY: 07/11/2024 PREOPERATIVE DIAGNOSIS: Suture granuloma midline abdominal wound. POSTOPERATIVE DIAGNOSIS: Suture granuloma midline abdominal wound. SURGEON: Eric Sheriff MD TIRE BLADDER MAKER: Bernardo Mehta NP ANESTHESIA: Local with IV sedation. ANESTHESIOLOGIST: Dr. Mackenzie. PROCEDURE: Incision and drainage and excision of suture from suture granuloma. DESCRIPTION OF PROCEDURE: Under adequate anesthesia, with the patient's skin prepped and draped, the wound that was then opened, part of the midline healed scar from an operation performed in [place] was explored. The suture was grasped with hemostat and removed in its entirety. The wound was then irrigated and packed with iodoform gauze. The patient remained stable throughout the procedure, left the operating room following an accurate needle and sponge count. Eric Sheriff MD PF TID: [id number] RECEIPT: [id number]
--- NOTE | 2024-07-11 09:19 | DVHSR ---
APPROVED REPORT EXAM: Two-dimensional and M-mode echocardiogram with Doppler and color Doppler. Blood Pressure: 106/72 mmHg INDICATION Bradycardia RISK FACTORS Height: 5' 2", Weight: 153 DIMENSIONS LVDd4.3 (3.8-5.7cm)LA (2D)3.1 (1.9-4.0cm)Aortic Root3.1 (2.0-3.7cm) LVDs2.7 (2.5-4.0cm)LA (MM) (1.9-4.0cm)Aortic Cusp Exc1.6 (1.5-2.0cm) EF (%) 66.0 (55-70%)Rt. Atrium3.2 (1.9-4.0cm)Asc. Aorta cm IVSd0.9 (0.7-1.1cm)RV (D) (1.8-2.4cm) PWd0.9 (0.7-1.1cm) Mitral Valve MitralMitral Stenosis E wave0.90m/sMV Mean GR.mmHg A wave0.90m/sMV Peak GR.mmHg E/A ratio1.02D MVAcm2 Aortic Valve Aortic ValveAortic Stenosis V11.00m/Mabel Mean GR.5mmHg V21.40m/Mabel Peak GR.9mmHg LVOT Diameter2.0 (1.8-2.4cm)Doppler AVA2.24cm2 Pulmonic Valve V20.70m/s Tricuspid Valve TR Velocity2.40m/s [id number] Conclusion Normal left ventricular size and dimension. Normal left ventricular systolic function estimated ejec tion fraction 55%. There is a grade 1 diastolic dysfunction. Normal right ventricular size and dimension. Normal right ventricular systolic function. Normal biatrial size and dimension. Normal aortic valve structure and function. Normal mitral valve structure and function. Normal tricuspid valve structure and function. The pulmonary valve is grossly normal. No pericardial effusion.
--- NOTE | 2024-07-11 16:56 | DVHDSRES ---
Discharge Summary Date of Admission Resident Creating Document: CONSTANZA DEGROOT RESDIENT Jul 07, 2024 at 21:43 Date of Discharge: Jul 08, 2024 Admitting Diagnosis Wound check in lower abdominal Labs/Diagnostic Data: Laboratory Results Test 07/11/24 05:28 07/10/24 06:06 07/08/24 04:17 07/07/24 15:51 White Blood Count 7.5 10^3/uL (4.4-10.8) Red Blood Count 4.03 10^6/uL (4.0-5.20) Hemoglobin 11.1 g/dL (12.2-16.2) Hematocrit 33.7 % (36.0-46.0) Mean Corpuscular Volume 83.7 fL (80.0-100.0) Mean Corpuscular Hemoglobin 27.6 pg (28.0-32.0) Mean Corpuscular Hemoglobin Concent 33.0 g/dL (32.0-36.0) Red Cell Distribution Width 13.6 % (11.8-14.3) Platelet Count 267 10^3/uL (140-450) Mean Platelet Volume 7.7 fL (6.9-10.8) Neutrophils (%) (Auto) 59.0 % (37.0-80.0) Lymphocytes (%) (Auto) 30.9 % (10.0-50.0) Monocytes (%) (Auto) 6.2 % (0.0-12.0) Eosinophils (%) (Auto) 3.5 % (0.0-7.0) Basophils (%) (Auto) 0.4 % (0.0-2.0) Neutrophils # (Auto) 4.4 10 ^3/uL (1.6-8.6) Lymphocytes # (Auto) 2.3 10 ^3/uL (0.4-5.4) Monocytes # (Auto) 0.5 10 ^3/uL (0-1.3) Eosinophils # (Auto) 0.3 10 ^3/uL (0-0.8) Basophils # (Auto) 0 10 ^3/uL (0-0.2) Nucleated Red Blood Cells 0.0 % Sodium Level 141 mmol/L (136-145) Potassium Level 4.0 mmol/L (3.5-5.1) Chloride Level 108 mmol/L (98-107) Carbon Dioxide Level 24 mmol/L (20-31) Anion Gap 9 (5-15) Blood Urea Nitrogen 17 mg/dL (9-23) Creatinine 0.84 mg/dL (0.550-1.02) Glomerular Filtration Rate Calc 78 mL/min (>90) BUN/Creatinine Ratio 20.2 (10.0-20.0) Serum Glucose 98 mg/dL (74-106) Calcium Level 9.4 mg/dL (8.7-10.4) Prothrombin Time 10.9 sec (9.3-11.8) Prothrombin Time INR 1.03 (0.9-1.15) Activated Partial Thromboplast Time 25.6 SEC (24.5-34.5) Hemoglobin A1c 6.1 % A1C (<5.7) Total Bilirubin 0.4 mg/dL (0.2-1.0) Aspartate Amino Transferase (AST) < 8 U/L (13-40) Alanine Aminotransferase (ALT) 12 U/L (7-40) Alkaline Phosphatase 49 U/L (46-116) Total Protein 7.1 g/dL (5.7-8.2) Albumin 4.5 g/dL (3.2-4.8) Vitamin B12 Level 714 pg/mL (211-911) Vitamin D 25-Hydroxy 30.4 ng/mL (30.0-100) Thyroid Stimulating Hormone (TSH) 4.37 uIU/mL (0.55-4.78) Urine Color Colorless (Yellow) Urine Clarity Clear (Clear) Urine pH 5.0 (5.0-9.0) Urine Specific [place] 1.007 (1.001-1.035) Urine Protein Negative (Negative) Urine Ketones Negative (Negative) Urine Blood Trace /uL (Negative) Urine Nitrite Negative (Negative) Urine Bilirubin Negative (Negative) Urine Urobilinogen Normal mg/dL (Negative) Urine Leukocyte Esterase Negative /uL (Negative) Urine RBC None seen /hpf (0 - 4) Urine WBC None seen /hpf (0 - 5) Urine Squamous Epithelial Cells Few /hpf (<5) Urine Bacteria None seen /hpf (None Seen) Urine Glucose Normal mg/dL (Normal) Urine Opiates Screen Neg (NEGATIVE) Urine Fentanyl Screen Neg (NEGATIVE) Urine Barbiturates Screen Neg (NEGATIVE) Urine Phencyclidine Screen Neg (NEGATIVE) Urine Amphetamines Screen Neg (NEGATIVE) Urine Benzodiazepines Screen Neg (NEGATIVE) Urine Cocaine Screen Neg (NEGATIVE) Urine Cannabinoids Screen Neg (NEGATIVE) Test 07/07/24 12:12 POC Glucose 93 mg/dl (70-106) Other Laboratory Tests 07/11/24 05:28 Brief Hx & Hospital Course: Tevin Bond is a 64-year-old Upper Sorbian-speaking female with a PMH of type 2 DM and HLD who presented to the ED for a wound check. The patient reported having a wound in the lower abdomen midline for 2 years, formed after an I&D in [place] for an abscess. Since then, it has been leaking serous or serosanguineous fluid but was painless until 3 days ago when she started experiencing pain. She denies fever, nausea, vomiting, and other associated symptoms. Past Medical History: Type 2 DM, HLD Past Surgical History: Appendectomy, hernia repair Family History: Reviewed, noncontributory Social History: Lives with daughter, denies smoking, alcohol, and other drug abuse Home Medication: Metformin, atorvastatin On physical examination, there was periumbilical redness with a small ulcer draining serosanguineous fluid; otherwise, the physical examination was within normal limits. Lab studies showed Hb at 11.1, chloride 108, Hb A1c 6.1, otherwise within normal limits. Abdominal CT scan showed a suspected incisional abscess, and ultrasound revealed a 3 x 1 x 2 cm phlegmonous collection in the mid-abdominal wall, with a developing abscess not excluded, hepatic steatosis, and small mobile gallstones and sludge in the gallbladder. The patient was admitted for evaluation of a possible abdominal abscess. During hospital admission, the patient was put on IV clindamycin, surgery were consulted and performed incision and drainage and found suture granuloma, post operation the dressing was changed, it was intact clean and dry without any bleeding or infection sign.. Wound culture result showed MRSA positive, sensitive to clindamycin and trimethoprim/sulfamethoxazole. Patient also had sinus bradycardia, telemetry monitoring for tow days showed no incidents, EKG was showing normal sinus rhythm, echocardiogram study was normal, physical therapy showed no limitation and there was no significant BP dropped on orthostatic vitals checkup. On 07/11/2024, patient was feeling better since admission, patient did not have any active complaint. Patient could tolerate oral intake. Discharge plan discussed with the patient. Discharge plan: Follow up with the PCP within 1 week of the discharge. Follow up with the discharge Clinic within 1 week of the discharge. Follow up with the surgeon on outpatient basis Bactrim ds twice daily for 10 days Tablet Tylenol for the pain as required Homehealth with wound care, abdominal dressing changes 3x/week until surgery follow-up. Consults/Reason for consult Surgery: For possible abdominal wall abscess Operations or Procedures Patient: TEVIN BOND Acct: [id number] : 1960 Loc: TELE-CENTR Age/Sex: 64/F [facility] Attending Phy: CONSTANZA DEGROOT RESDIBRIGETTE DATE OF SURGERY: 07/11/2024 PREOPERATIVE DIAGNOSIS: Suture granuloma midline abdominal wound. POSTOPERATIVE DIAGNOSIS: Suture granuloma midline abdominal wound. SURGEON: Mumtaz Perez MD THERMO CEMENTING FOLDER OPERATOR: Bernardo Mehta NP ANESTHESIA: Local with IV sedation. ANESTHESIOLOGIST: Dr. Mackenzie. PROCEDURE: Incision and drainage and excision of suture from suture granuloma. DESCRIPTION OF PROCEDURE: Under adequate anesthesia, with the patient's skin prepped and draped, the wound that was then opened, part of the midline healed scar from an operation performed in [place] was explored. The suture was grasped with hemostat and removed in its entirety. The wound was then irrigated and packed with iodoform gauze. The patient remained stable throughout the procedure, left the operating room following an accurate needle and sponge count. Mumtaz Perez MD PF TID: [id number] RECEIPT: [id number] DICTATED BY:MUMTAZ PEREZ MD DICTATED DATE/TIME:07/11/24 0546 ELECTRONICALLY SIGNED BY: ELECTRONICALLY CO-SIGNED BY: [place] [id number] Ph: [phone] DIAGNOSTIC IMAGING Diagnostic Imaging Report : [id number] Signed PATIENT: TEVIN BOND ACCT: [id number] UNIT: [id number] : 1960 LOC: TELE-CENTR ROOM / BED: 0209T / A AGE / SEX: 64 / F ADM STATUS: ADM IN SERVICE 1233 ORDERING PHYSICIAN: HEWADMAL,HEWAD RESDIENT PROCEDURE(s): ECIDC - ECHO 2D MODE CARDIAC DOP REASON: Bradycardia ORDER NUMBER(s): [id number], ACCESSION NUMBER(s): [id number] APPROVED REPORT EXAM: Two-dimensional and M-mode echocardiogram with Doppler and color Doppler. Blood Pressure: 106/72 mmHg INDICATION Bradycardia RISK FACTORS Height: 5' 2", Weight: 153 DIMENSIONS LVDd 4.3 (3.8-5.7cm) LA (2D) 3.1 (1.9-4.0cm) Aortic Root 3.1 (2.0- 3.7cm) LVDs 2.7 (2.5-4.0cm) LA (MM) (1.9-4.0cm) Aortic Cusp Exc 1.6 (1.5- 2.0cm) EF (%) 66.0 (55-70%) Rt. Atrium 3.2 (1.9-4.0cm) Asc. Aorta cm IVSd 0.9 (0.7-1.1cm) RV (D) (1.8-2.4cm) PWd 0.9 (0.7-1.1cm) Mitral Valve Mitral Mitral Stenosis E wave 0.90m/s MV Mean GR. mmHg A wave 0.90m/s MV Peak GR. mmHg E/A ratio 1.0 2D MVA cm2 Aortic Valve Aortic Valve Aortic Stenosis V1 1.00m/s AO Mean GR. 5mmHg V2 1.40m/s AO Peak GR. 9mmHg LVOT Diameter 2.0 (1.8-2.4cm) Doppler DELORES 2.24cm2 Pulmonic Valve V2 0.70m/s Tricuspid Valve TR Velocity 2.40m/s RVSP 27mmHg Conclusion Normal left ventricular size and dimension. Normal left ventricular systolic function estimated ejection fraction 55%. There is a grade 1 diastolic dysfunction. Normal right ventricular size and dimension. Normal right ventricular systolic function. Normal biatrial size and dimension. Normal aortic valve structure and function. Normal mitral valve structure and function. Normal tricuspid valve structure and function. The pulmonary valve is grossly normal. No pericardial effusion. SIGNED BY: RAFFY CORREA MD SIGNED DATE/TIME: 07/11/24 0919 CC: Condition at Discharge: Good Final Diagnosis/Problems List Suture granuloma midline abdominal wound Abdominal wall abscess/cellulitis Hepatic steatosis, likely due to JORGE Gallstone, asymptomatic Diabetes mellitus type 2 Hyperlipidemia Bradycardia Discharge Disposition: Home with Health Services Discharge Instruct/Medications Diet: Cardiac 2g Na,low cholest Activity: No Restrictions, As Tolerated Follow Up/Referral: follow up with the PCP within one week after discharge. follow up with Discharge cllinic within one week after discharge. Tablet Tylenol for the pain as required Medications: Bactrim Ds twice daily for 10 days. Discharge Statement: "Patient was advised to return to the ER or call 911 if any headaches, dizziness, shortness of breath, chest pain, abdominal pain, bleeding, fevers, or worsening of medical condition. Patient was counseled about treatment plan, medications, possible side effects, patientverbalized understanding. All questions were answered to the best of my ability. This discharge took greater then 30 minutes in planning, reviewing documentation, counseling the patient, and discussing with other team members." ASSESSMENT ASSESSMENT Assessment Suture granuloma midline abdominal wound Date of Service: Jul 11, 2024 Billing Provider: AUDRA WATTS MD Common Visit Codes: [id number] INP/OBS CARE(HIGH), 20989-FBW/[id number] DISCH DAY >30min CONSTANZA DEGROOT RESDIENT Jul 11, 2024 16:56 AUDRA WATTS MD Jul 11, 2024 18:54
[2024-07-11] MEDS ORDERED: BACDST PO (18:27)
== END 2024-07-11 15:15 | disposition home health service (06) | DRG 793 ==
LOC: ER 11:53 → OVERFLOW 21:43 → TELE-WESTW 07-08 17:58 → WEST WING 07-08 18:00 → CENTRAL 07-10 15:55 → TELE-CENTR 07-10 18:40
PROVIDERS: ADMIT Student in an Organized Health Care Education/Training Program; ATTEND Student in an Organized Health Care Education/Training Program
PROC: 0W9F0ZZ Drainage of Abdominal Wall, Open Approach (ICD-10-PCS; principal; 2024-07-11 07:10)
DX: T81.89XA Other complications of procedures, not elsewhere classified, initial encounter (principal); L02.211 Cutaneous abscess of abdominal wall; K75.81 Nonalcoholic steatohepatitis (NASH); E11.9 Type 2 diabetes mellitus without complications; E78.5 Hyperlipidemia, unspecified; L03.311 Cellulitis of abdominal wall; K80.20 Calculus of gallbladder without cholecystitis without obstruction; Y83.8 Other surgical procedures as the cause of abnormal reaction of the patient, or of later complication, without mention of misadventure at the time of the procedure; Z90.49 Acquired absence of other specified parts of digestive tract; Y92.89 Other specified places as the place of occurrence of the external cause; R00.1 Bradycardia, unspecified
CPT/HCPCS: 36415; 71046; 74176; 76705; 80048; 80053; 80307; 81001; 82040; 82247; 82306; 82607; 82962; 83036; 84075; 84155; 84443; 84450; 84460; 85025; 85610; 85730; 86850; 86900; 86901; 87077; 87186; 87205; 93306; 97163; G0378; J2003; J2250; J2405; J2470; J2704; J3490